=== PATIENT | female | born 1955 | race American Indian/Alaskan Native ===

== ENCOUNTER 2018-07-23 17:07 | Emergency (ER) | payer SELFPAY ==
--- NOTE | 2018-07-23 17:44 | XRay Report ---
PROCEDURE: XR CHEST ROUTINE 2V TECHNIQUE: PA and lateral chest radiographs were obtained. HISTORY: cough and congestion with h/o asthma COMPARISONS: None. FINDINGS: Heart: Normal. Mediastinum/Vessels: Normal. Lungs/Pleural space: Normal. Bony thorax: No acute osseous abnormality. IMPRESSION: Normal examination. This document is electronically signed by Cynthia Chan MD., Jul 23 2018 05:42:20 PM ET
[2018-07-23] MEDS ORDERED: DUONEB *Not for PRN Use IH ONE (20:32)
--- NOTE | 2018-07-23 20:53 | Emergency Department Report ---
- General Chief Complaint: Upper Respiratory Infection Stated Complaint: COUGH/SORE THROAT Time Seen by Provider: 07/23/18 20:19 Source: patient Mode of arrival: Ambulatory Limitations: No Limitations - History of Present Illness Initial Comments: Pt is a 63 yo female who presents to the ED with c/o a cough that began a week ago. She states she has had some mucus production. She has associated congestion and rhinorrhea. The patient has a hx of asthma and uses an albuterol inhaler. she states she has been using nyquil and cough drops without much relief. she denies any fever. she is a former smoker, quit in 2003. she denies any allergies to meds. - Related Data Previous Rx's Medication Instructions Recorded Last Taken Type Benzonatate [Tessalon Perles] 100 mg PO Q8HR PRN #20 capsule 07/23/18 Unknown Rx Fluticasone [Flonase] 1 spray NS QDAY #1 bottle 07/23/18 Unknown Rx Montelukast [Singulair] 10 mg PO QPM #30 tablet 07/23/18 Unknown Rx Prednisone [predniSONE 5 mg (6-Day 5 mg PO .TAPER #1 tab.ds.pk 07/23/18 Unknown Rx Pack, 21 Tabs)] Allergies Allergy/AdvReac Type Severity Reaction Status Date / Time No Known Allergies Allergy Unverified 07/23/18 17:12 ED Review of Systems ROS: Stated complaint: COUGH/SORE THROAT Other details as noted in HPI Comment: All other systems reviewed and negative ED Past Medical Hx - Past Medical History Previous Medical History?: Yes Hx Hypertension: Yes Hx Diabetes: Yes Hx Asthma: Yes - Surgical History Past Surgical History?: No - Social History Smoking Status: Never Smoker Substance Use Type: Alcohol - Medications Home Medications: Home Medications Medication Instructions Recorded Confirmed Last Taken Type Benzonatate [Tessalon Perles] 100 mg PO Q8HR PRN #20 capsule 07/23/18 Unknown Rx Fluticasone [Flonase] 1 spray NS QDAY #1 bottle 07/23/18 Unknown Rx Montelukast [Singulair] 10 mg PO QPM #30 tablet 07/23/18 Unknown Rx Prednisone [predniSONE 5 mg (6-Day 5 mg PO .TAPER #1 tab.ds.pk 07/23/18 Unknown Rx Pack, 21 Tabs)] ED Physical Exam - General Limitations: No Limitations General appearance: alert, in no apparent distress - Head Head exam: Present: atraumatic, normocephalic - Eye Eye exam: Present: normal appearance - ENT ENT exam: Present: normal orophraynx, other (pale boggy turbinates bilaterally with clear discharge, no sinus TTP) - Respiratory Respiratory exam: Present: wheezes (in the bilateral bases ), prolonged expiratory. Absent: respiratory distress, rales, rhonchi, stridor, chest wall tenderness, accessory muscle use, decreased breath sounds - Cardiovascular Cardiovascular Exam: Present: regular rate, normal rhythm, normal heart sounds. Absent: systolic murmur, diastolic murmur, rubs, gallop - Neurological Exam Neurological exam: Present: alert, oriented X3 - Psychiatric Psychiatric exam: Present: normal affect, normal mood - Skin Skin exam: Present: warm, dry, intact ED Course Vital Signs 07/23/18 07/23/18 17:15 22:02 Temperature 98.4 F 99.4 F Pulse Rate 83 86 Respiratory 18 18 Rate Blood Pressure 141/80 Blood Pressure 117/76 [Right] O2 Sat by Pulse 95 95 Oximetry - Reevaluation(s) Reevaluation #1: 07/23/18 21:42 wheezing completely resolved s/p neb tx ED Medical Decision Making - Radiology Data Radiology results: report reviewed PROCEDURE: XR CHEST ROUTINE 2V TECHNIQUE: PA and lateral chest radiographs were obtained. HISTORY: cough and congestion with h/o asthma COMPARISONS: None. FINDINGS: Heart: Normal. Mediastinum/Vessels: Normal. Lungs/Pleural space: Normal. Bony thorax: No acute osseous abnormality. IMPRESSION: Normal examination. This document is electronically signed by Cynthia Chan MD., Jul 23 2018 05:42:20 PM ET - Medical Decision Making Pt is a 63 yo female who presents to the ED with c/o a cough that began a week ago. She states she has had some mucus production. She has associated congestion and rhinorrhea. The patient has a hx of asthma and uses an albuterol inhaler. she states she has been using nyquil and cough drops without much relief. she denies any fever. she is a former smoker, quit in 2003. she denies any allergies to meds. on initial examination pt had wheezing at the bases, pt given duo-neb and wheezing completely resolved, CXR with no acute process, on exam has pale boggy turbinates bilaterally. pt given prescription for flonase, singulair, steroids, and tessalon perles. advised to take all medications as prescribed. follow up with PCP in the next 2-3 days. return to the ED for any new or worsening symptoms. Critical care attestation.: If time is entered above; I have spent that time in minutes in the direct care of this critically ill patient, excluding procedure time. ED Disposition Clinical Impression: Seasonal allergies Asthma Qualifiers: Asthma severity: unspecified severity Asthma persistence: unspecified Asthma complication type: with acute exacerbation Qualified Code(s): J45.901 - Unspecified asthma with (acute) exacerbation Allergic rhinitis Qualifiers: Allergic rhinitis trigger: pollen Allergic rhinitis seasonality: seasonal Qualified Code(s): J30.1 - Allergic rhinitis due to pollen Disposition: DC- TO HOME OR SELFCARE Is pt being admited?: No Does the pt Need Aspirin: No Condition: Stable Instructions: Asthma (ED), Allergic Rhinitis (ED) Additional Instructions: Please take all medication as prescribed. please follow up with a primary care doctor in the next 2-3 days. return to the emergency room for any or worsening symptoms. Prescriptions: Fluticasone [Flonase] 1 spray NS QDAY #1 bottle Prednisone [predniSONE 5 mg (6-Day Pack, 21 Tabs)] 5 mg PO .TAPER #1 tab.ds.pk Montelukast [Singulair] 10 mg PO QPM #30 tablet Benzonatate [Tessalon Perles] 100 mg PO Q8HR PRN #20 capsule PRN Reason: Cough Referrals: SADI RIOS MD [Primary Care Provider] - 2-3 Days Forms: Work/School Release Form(ED) Time of Disposition: 21:43 Print Language: AZERI
[2018-07-23 22:03] VITALS: BP 117/76
== END 2018-07-23 22:06 | disposition home or self-care (01) ==
LOC: ED 17:07
DX: J45.901 Unspecified asthma with (acute) exacerbation (principal); J30.1 Allergic rhinitis due to pollen; I10 Essential (primary) hypertension; E11.9 Type 2 diabetes mellitus without complications
CPT/HCPCS: 71046; 99283